=== PATIENT | male | born 1995 | race Two or more races ===

== ENCOUNTER 2020-09-15 21:53 | Emergency (ER) | payer SELFPAY ==
[~2020-09-15] VITALS: Ht 172.7 cm; Wt 62.0 kg
[2020-09-15 22:19] VITALS: BP 106/82
--- NOTE | 2020-09-15 22:32 | NUR ---
contacted [facility], case number [id number], pt does not want to talk with police
[2020-09-15] MEDS ORDERED: LIDOcaine 1% W/epiNEPHrine 1:200,000 10ml vial IJ ONE (23:55)
[2020-09-16] MEDS ORDERED: acetaminophen 325mg tablet PO ONE (00:25)
== END 2020-09-16 00:34 | disposition home or self-care (01) ==
LOC: ER 21:54
DX: S01.511A Laceration without foreign body of lip, initial encounter (principal); S00.83XA Contusion of other part of head, initial encounter; L02.416 Cutaneous abscess of left lower limb; H11.32 Conjunctival hemorrhage, left eye; Y04.8XXA Assault by other bodily force, initial encounter; Y93.89 Activity, other specified; Y92.89 Other specified places as the place of occurrence of the external cause; Y99.8 Other external cause status
CPT/HCPCS: 10060; 99282